=== PATIENT | female | born 1970 | race Caucasian/White ===

== ENCOUNTER → 2024-05-19 15:34 | Outpatient (BNVA) | payer MEDICAID, SELFPAY | PROVIDERS: Family Provider Nurse Practitioner Family; PCP Nurse Practitioner Family; Visit Provider Family Medicine | DX: E11.9 Type 2 diabetes mellitus without complications (principal) | CPT/HCPCS: 83036 ==

== ENCOUNTER → 2024-10-28 15:53 | Outpatient (BNVA) | payer MEDICAID, SELFPAY | PROVIDERS: Family Provider Nurse Practitioner Family; PCP Nurse Practitioner Family; Visit Provider Nurse Practitioner | DX: N39.0 Urinary tract infection, site not specified (principal) | CPT/HCPCS: 81000; 87086 ==

== ENCOUNTER → 2024-11-10 08:56 | Outpatient (BNVA) | payer MEDICAID, SELFPAY | PROVIDERS: Family Provider Nurse Practitioner Family; PCP Family Medicine; Visit Provider Family Medicine | DX: Z12.4 Encounter for screening for malignant neoplasm of cervix (principal) | CPT/HCPCS: 87624 ==

== ENCOUNTER → 2024-12-12 08:38 | Outpatient (BNVA) | payer MEDICAID, SELFPAY | PROVIDERS: PCP Family Medicine; Visit Provider Family Medicine | DX: E11.9 Type 2 diabetes mellitus without complications (principal); E78.01 Familial hypercholesterolemia; E53.8 Deficiency of other specified B group vitamins; E55.9 Vitamin D deficiency, unspecified | CPT/HCPCS: 80053; 80061; 82306; 82607; 83036; 84443 ==

== ENCOUNTER 2025-01-31 13:33 | Outpatient (CLI) | payer OTHER, SELFPAY ==
--- NOTE | 2025-01-31 13:43 | XRR_ITS ---
PROCEDURE INFORMATION: Exam: XR Right Foot Exam date and time: 01/31/2025 1:51 PM Age: 54 years old Clinical indication: Foot; Right; PT states she broke her big toe x 12 years. Pain has came back x few weeks. ; Additional info: R 1st mtp pain and stiffness; Past old FX TECHNIQUE: Imaging protocol: Radiologic exam of the right foot. Views: 3 or more views. COMPARISON: No relevant prior studies available. FINDINGS: Bones/joints: Mild degenerative change 1st metatarsal phalangeal joint. Lateral view demonstrates wmbcgtzy-ut-wabem calcaneal spur or enthesophyte formation about both the posterior and plantar aspect of the calcaneus. No acute fracture or dislocation. Soft tissues: No significant soft tissue abnormality. XR/XR foot RT min 3V* [id number] IMPRESSION: Mild degenerative change 1st metatarsophalangeal joint. Cyiniiyg-oa-jwyod calcaneal spur or enthesophyte formation.
== END 2025-01-31 13:34 | disposition home or self-care (01) ==
PROVIDERS: PCP Family Medicine; Visit Provider Family Medicine
DX: M79.674 Pain in right toe(s) (principal); M19.071 Primary osteoarthritis, right ankle and foot; M77.31 Calcaneal spur, right foot
CPT/HCPCS: 73630

== ENCOUNTER 2025-03-31 14:30 | Outpatient (CLI) | payer OTHER, SELFPAY ==
--- NOTE | 2025-03-31 15:00 | MM_ITS ---
WS: [id number] Bilateral screening 3D tomosynthesis digital mammogram, 03/31/2025 2:37 PM Clinical Data: screening Comparison: None. Findings: No spiculated masses or clustered calcifications are seen. There are no secondary signs of carcinoma. MM/MM scr BI tomosynthesis [id number] Impression: Negative bilateral mammogram with no prior exam for review. Recommend annual screening mammograms. BIRADS: 1 - Negative. FOLLOW UP: 1 Year Follow-up DENSITY: There are scattered areas of fibroglandular density. The CAD schedule checker was used
== END 2025-03-31 14:31 | disposition home or self-care (01) ==
LOC: RAD 14:31
PROVIDERS: PCP Family Medicine; Visit Provider Family Medicine
DX: Z12.31 Encounter for screening mammogram for malignant neoplasm of breast (principal); R92.323 Mammographic fibroglandular density, bilateral breasts
CPT/HCPCS: 77063; 77067

== ENCOUNTER 2025-04-16 11:02 | Emergency (ER) | payer OTHER, SELFPAY ==
--- OUTSIDE RECORDS SUMMARY | 2023-04-15 11:00 | XMS_ITS | Continuity of Care Document ---
Author Organization [facility] Address [id number][place] [address] Phone Care Team Providers Care V Block Saw Operator Name Role Phone Tk Ramirez DMD Unavailable Unavailable Allergies, Adverse Reactions, Alerts Substance Reaction Status Criticality No Known Allergies Active No Inform ation Medications Medication Instructions Dosage Effective Dates (start - stop) Status Comments amoxicillin 500 mg capsule take 2 capsules by oral route for the first dose then 1 capsule every 8 hours until gone. - Active amoxicillin 500 mg capsule take 2 capsules by oral route for the first dose then 1 capsule every 8 hours until gone. - Active penicillin V potassium 500 mg tablet take 1 tablet by oral route every 6 hours for dental infection 500 MG - Active metformin 500 mg tablet take 1 tablet by oral route 2 times every day with morning and evening meals 500 MG - Active montelukast 10 mg tablet take 1 tablet by oral route every day in the evening 10 MG - Active Procedures Procedure Date Treatment Plan Complete Resin-Based Composite Four Or More Surfaces Or I Resin-Based Composite One Surface, Anterior Resin-Based Composite Two Surfaces, Anterior Resin-Based Composite Three Surfaces, Posterior Resin-Based Composite Two Surfaces, Anterior Resin-Based Composite Four Or More Surfaces Or I Extraction, Erupted Tooth Or Exposed Beverly t (Elevati Resin-Based Composite Three Surfaces, Posterior Anterior (Excluding Final Taoism) M Core Buildup, Including Any Pins 2022 Resin-Based Composite One Surface, Posterior Resin-Based Composite One Surface, Posterior Intraoral Periapical First Film Comprehensive Oral Evaluatio n New Or Established Panoramic Film Intraoral Periapical Each Additional Film Intraoral Periapical Each Additional Film Intraoral Periapical Each Additional Film Prophylaxis Adult Bitewings Two Films Intraoral Periapical First Film Limited Oral Evaluation Problem Focused Extraction, Erupted Tooth Or Exposed Beverly t (Elevati Advance Directives Directive Yes / No Effective Date File Name No Information Encounters Encounter Description Practice Location Reason(s) For Visit Diagnoses Date Provider Providers Copied on Encounter [facility], [id number] [place], [place], [id number], [place] tel:[phone] [facility] Encounter for dental exam and cleaning w/o abnormal findings Sep-2 3 James Frey. [address] [place] [address], [address], [place]. tel:[phone] Referring Provider: Tk Ramirez, [address] [place] [address], [address]. tel:[phone] [facility], [id number] [place], [id number], [place] tel:[phone] [facility] Encounter for dental exam and cleaning w/o abnormal findings Sep-0 3 James Frey. [address] [place] [address], [address], [place]. tel:[phone] Referring Provider: Tk Ramirez, [address] [place] [address], [address]. tel:[phone] [facility], [id number]-U[address] [place], [id number], [place] tel:[phone] [facility] Encounter for dental exam and cleaning w/o abnormal findings [address] [place], [address], [place]. tel:[phone] Referring Provider: Tk Ramirez, [address] [place] [address], [address]. tel:[phone] [facility], [id number], [id number], [place] tel:[phone] [facility] No Information 3 James Frey. [address] [place] [address], [address], [place]. tel:[phone] [facility], [id number], [id number], [place] tel:[phone] [facility] No Information 3 James Frey. [address] [place], [address], [place]. tel:[phone] Referring Provider: Tk Ramirez, [address] [place] [address], [address]. tel:[phone] [facility], [id number] [place], [id number], [place] tel:[phone] [facility] No Information 3 James Frey. [address] [place], [address], [place]. tel:[phone] Referring Provider: Tk Ramirez, [address] [place] [address], [address]. tel:[phone] [facility], [id number] 727[place]JO[place], [id number], [place] tel:[phone] [facility] No Information 3 James Frey. [address] [place] [address], [address], [place]. tel:[phone] Referring Provider: Tk Ramirez, [address] [place] [address], [address]. tel:[phone] [facility], [id number] [id number][place], [id number], [place] tel:[phone] [facility] No Information 3 James Frey. [address] [place] [address], [address], [place]. tel:[phone] Referring Provider: Tk Ramirez, [address] [place] [address], [address]. tel:[phone] [facility], [id number] [id number][place], [id number], [place] tel:[phone] [facility] No Information 2 No Information [facility], [id number][place], [id number], [place] tel:[phone] [facility] No Information 2 Nestor Perez. [address] [place], [place], [id number], [place]. tel:[phone] Referring Provider: Jacki Baez, [address] [place], [address] . tel:[phone] Family History Family Member Type Diagnosis Age At Onset No Information Payers Payer name Insurance type Covered green party ID Kingsleyelvira elsi(s) [facility] Medicaid CI [id number] Social History Type Description Quantity Date Captured Comments Alcohol Use Details Unknown Caffeine Use Details Unknown Tobacco Use Status No Information Smoking Status No Information Sex Female Sexual Orientation Heterosexual Gender Identity Female Chief Complaint And Reason For Visit No Information Reason For Referral Reason For Referral No Information History Of Present Illness Encounter Date Complaint History Of Prese nt Illness No Information Functional Status Date Functional Assessmen t No Information Instructions Date Instruction Additional Infor mation No Information Assessments Type Assessment Date No Information Patient Care Teams Name Effective Dates (start - stop) Status Members No Information
[2025-04-16 11:07] VITALS: BP 140/89; PULSE 77; RESP 18; TEMP 36.5; O2SAT 100; BMI 27.6
--- OUTSIDE RECORDS SUMMARY | 2025-04-16 11:07 | XMS_ITS | Encounter Summary ---
Author Organization [facility] Address [address] [place] [address] Care Team Providers Care Hog Confinement System Manager Name Role Phone Non-Staff, Physician Primary Care Provider Unava ilable Encounter Details Date Type Department Care Team (Late st Contact Info) Description 11/29/1999 Outpatient Historical [facility]- [facility] [place] [address] [place] [address] Aaron Ness, [address] 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
--- OUTSIDE RECORDS SUMMARY | 2025-04-16 11:07 | XMS_ITS | Encounter Summary ---
Author Organization [facility] Address [address] [place] [address] Care Team Providers Care Harvest Worker Fruit Name Role Phone Non-Staff, Physician Primary Care Provider Unava ilable Encounter Details Date Type Department Care Team (Late st Contact Info) Description 08/28/2000 Outpatient Historical [facility] Oral and Maxillo Surgery[address] [place] [id number] Social History Tobacco Use Types Packs/Day Years Used Date Smoking Tobacco: Never Assessed Comments Unknown Sex and Gender Information Value Date Recorded Sex Assigned at Not on file Legal Sex Female 2:52 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
--- OUTSIDE RECORDS SUMMARY | 2025-04-16 11:07 | XMS_ITS | Encounter Summary ---
Author Organization [facility] Address [address] [place] [address] Care Team Providers Care Coat Maker Name Role Phone Non-Staff, Physician Primary Care Provider Unava ilable Reason for Referral * Outpatient Services (Routine) - Closed Specialty Diagnoses / Procedures Referred By Albert beltran Referred To Contact Diagnoses Other screening mammogram Procedures MAMMO DIGITAL SCREEN BILAT Kameron Callaway MD NO ADDRESS ON FILE Referral ID Status Reason Start Date Expiration Date Visits Re quested Visits Authorized [id number] Closed 01/20/2011 01/20/2012 1 1 Encounter Details Date Type Department Care Team (Latest Contact Info) Description 01/20/2011 Ancillary Orders [facility] Pre-Registration [place] CALL TO MAKE APPOINTMENT ONLY [address] [place] [phone] Kameron Callaway MD NO ADDRESS ON FILE Other screening mammogram Social History Tobacco Use Types Packs/Day Years Used Date Smoking Tobacco: Never Smokeless Tobacco: Never Alcohol Use Standard Drinks/Week Comments No 0 (1 standard drink = 0.6 oz pur e alcohol) Comments Unknown Sex and Gender Information Value Date Recorded Sex Assigned at Not on file 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 However, I would recommend the patient obtain a risk assessment to determine her lifetime risk because of her family history. See above dictation for details. KG/jaw Narrative 02/24/2011 8:54 PM CDT BILATERAL SCREENING MAMMOGRAM: Bilateral CC and MLO views were obtained on this 40-year-old female who has a family history of breast cancer in two paternal cousins that were diagnosed in their mid 40s and late 50s. This is a baseline examination. There is a moderate degree of parenchymal tissue, and no suspicious findings are convincingly identified on either side. Because of the family history, I would recommend the patient obtain a risk assessment to determine her lifetime risk. If that assessment reveals a 20 to 25% risk of developing breast cancer, she would be a candidate for yearly screening MRIs in addition to the yearly screening mammogram. That risk assessment can be performed at the [facility] by Anjali Eason RN ([phone]). This digital mammogram was also analyzed by the Computer Aided Detection System (CAD), Payfirma ImageChecker, Version 8.3. Procedure Note Brooklyn Watson MD - 02/24/2011 BILATERAL SCREENING MAMMOGRAM: Bilateral CC and MLO views were obtained on this 40-year-old female whohas a family history of breast cancer in two paternal cousins that werediagnosed in their mid 40s and late 50s. This is a baselineexamination. There is a moderate degree of parenchymal tissue, and no suspiciousfindings are convincingly identified on either side. Because of thefamily history, I would recommend the patient obtain a risk assessment todetermine her lifetime risk. If that assessment reveals a 20 to 25% riskof developing breast cancer, she would be a candidate for yearly screeningMRIs in addition to the yearly screening mammogram. That risk assessmentcan be performed at the [facility] by LITO Cali ([phone]). This digital mammogram was also analyzed by the Computer Aided DetectionSystem (CAD), Payfirma ImageAppSurfercker, Version 8.3. IMPRESSION: Baseline screening mammogram reveals no suspicious findings. However, Iwould recommend the patient obtain a risk assessment to determine herlifetime risk because of her family history. See above dictation forduketails. KG/jaw us Kameron Callaway MD MAMMO ORDERABLES [facility] Result documented in this encounter Visit Diagnoses Diagnosis Other screening mammogram Other screening mammogram documented in this encounter Care Teams Coat Maker Relationship Specialty Start Date End Date Non-Staff, Physician NO ADDRESS ON FILE PCP - General 02/18/11 documented as of this encounter
--- OUTSIDE RECORDS SUMMARY | 2025-04-16 11:07 | XMS_ITS | Encounter Summary ---
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) Social History Tobacco Use Types Packs/Day Years Used Date Smoking Tobacco: Never Assessed Comments Unknown Sex and Gender Information Value Date Recorded Sex Assigned at Not on file Legal Sex Female 2:52 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
--- OUTSIDE RECORDS SUMMARY | 2025-04-16 11:07 | XMS_ITS | Encounter Summary ---
Author Organization [facility] Address [address] [place] [address] Care Team Providers Care German Instructor Name Role Phone Non-Staff, Physician Primary Care Provider Unava ilable Encounter Details Date Type Department Care Team (Late st Contact Info) Description 10/15/1999 Outpatient Historical [facility] Rheumatology- [facility] [address] [place] [address] Aaron Ness, [address] [facility] [address] [place] [address] Rheumatism, unspecified and fibrositis (Primary Dx); Other chest pain Social History Tobacco Use Types Packs/Day Years Used Date Smoking Tobacco: Never Assessed Comments Unknown Sex and Gender Information Value Date Recorded Sex Assigned at Not on file Legal Sex Female 2:52 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
--- OUTSIDE RECORDS SUMMARY | 2025-04-16 11:07 | XMS_ITS | Encounter Summary ---
Author Organization [facility] Address [address] [place] [address] Care Team Providers Care Process Engineering Intern Name Role Phone Non-Staff, Physician Primary Care Provider Unava ilable Encounter Details Date Type Department Care Team (Latest Contact Info) Description 11/09/2002 Outpatient Historical [facility] [address] [place] [address] AMBULANCE, [facility] FX PHALANX, HAND NOS-CLOSE (Primary Dx) Social History Tobacco Use Types Packs/Day Years Used Date Smoking Tobacco: Never Assessed Comments Unknown Sex and Gender Information Value Date Recorded Sex Assigned at Not on file Legal Sex Female 2:52 AM SOCIAL SERVICE DIRECTOR Gender Identity Not on file Sexual Orientation Not on file documented as of this encounter Plan of Treatment Not on file documented as of this encounter Visit Diagnoses Diagnosis Closed fracture of unspecified phalanx or phalanges of hand- Primary documented in this encounter Care Teams Process Engineering Intern Relationship Specialty Start Date End Date Non-Staff, Physician NO ADDRESS ON FILE PCP - General 02/18/11 documented as of this encounter
--- OUTSIDE RECORDS SUMMARY | 2025-04-16 11:07 | XMS_ITS | Clinical Summary ---
Author Organization [facility] Address [address] [place] [address] Care Team Providers Care Trashman Name Role Phone Non-Staff, Physician Primary Care Provider Unava ilable Allergies No known active allergies Medications spironolactone (ALDACTONE) 100 mg Oral tabletIndication s:PCOS (polycystic ovarian syndrome),Oligom enorrhea,Hyperan drogenism Take 1 Tab by mouth daily. 14 Tab 0 02/20/2011 Active Active Problems Problem Noted Date Diagnosed Date S/P endometrial ablation 01/16/2011 Oligomenorrhea 01/16/2011 Irregular menstrual cycle 01/16/2011 PCOS (polycystic ovarian syndrome) 01/16/2011 Family History Medical History Relation Name Comments Breast Cancer Paternal Cousin 2 cousins m id 40s and late 50s Relation Name Status Comments Paternal Cousin Social History Tobacco Use Types Packs/Day Years Used Date Smoking Tobacco: Never Smokeless Tobacco: Never Alcohol Use Standard Drinks/Week Comments No 0 (1 standard drink = 0.6 oz pur e alcohol) Comments Unknown Sex and Gender Information Value Date Recorded Sex Assigned at Not on file 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 Gender Identity Not on file Sexual Orientation Not on file Last Filed Vital Signs Vital Sign Reading Time Taken Comments Blood Pressure 122/76 02/20/2011 10:43 AM CDT Pulse - - Temperature 37.1 C (98.8 F) 02/20/2011 10:43 AM CDT Respiratory Rate - - Oxygen Saturation - - Inhaled Oxygen Concentration - - Weight 90.7 kg (200 lb) 02/20/2011 10:43 AM CDT Height 160 cm (5' 3 ) 02/20/2011 10:43 AM CDT Body Mass Index 35.43 02/20/2011 10:43 AM CDT Plan of Treatment Health Maintenance Due Date Last Done Comments DTAP/TDAP/TD VACCINES (1 - Tdap) 1989 HEPATITIS B VACCINES (1 of 3 - 19+ 3-dose series) 08/28 BREAST CANCER SCREENING 02/21/2012 02/20/2011 PAP SMEAR 01/16/2014 01/16/2011 COLORECTAL SCREENING 2015 Colorectal Cancer Screening 2015 FIT-DNA Q 3 years 2015 FIT/FOBT Q 1 year 2015 Flex Sig/CT Colonography Q 5 years 2015 CERVICAL CANCER SCREENING 01/17/2016 HPV/Cotest (21-29) 01/17/2016 01/16/2011 HPV/Cotest (30-65) 01/17/2016 01/16/2011 ZOSTER VACCINE (1 of 2) 2020 INFLUENZA VACCINE (#1) 2025 Procedures Procedure Name Priority Date/Time Associated Diagnosis Comments MAMMO SCREEN BILAT W OR WO CAD Routine 02/20/2011 9:17 AM CDT Other screening mammogram CERV/VAG CYTOPATH, THIN PREP W/RFLX HPV Routine 01/16/2011 7:05 AM CDT from Last 3 Months or Most Recently Relevant to Health Maintenance Results * MAMMO DIGITAL SCREEN BILAT (02/20/2011 [...] [facility] by Anjali Eason RN ([phone]). This digital mammogram was also analyzed by the Computer Aided Detection System (CAD), R2 ImageChecker, Version 8.3. Procedure Note Brooklyn Watson [...] and [facility] by LITO Cali ([phone]). This digital mammogram was also analyzed by the Computer Aided DetectionSystem (CAD), R2 ImageChecker, Version 8.3. IMPRESSION: Baseline screening mammogram reveals no suspicious findings. However, Iwould recommend the patient obtain a risk assessment to determine herlifetime risk because of her family history. See above dictation fordetails. KG/jaw us Kameron Callaway MD MAMMO ORDERABLES [facility] Result * CERV/VAG CYTOPATH, THIN PREP W/RFLX HPV (01/16/2011 7:05 AM CDT) TH THIN PREP CYTOLOGY REPORT REFLEX HPV [facility] Path[facility] Dept [facility] [address] Patient: RODRIGO JORDAN Accn No: [id number] , [id number] Collected: 01/16/2011 7:05:00 AM All cases except those with a DP prefix are performed by pathologists from [facility] at [facility]. Case type DP is performed by Dr. Harjeet Trammell, [facility], [facility] [address], [address], [place] [address] (CLIA #[id number]) (Ph. [phone]). THIN PREP PAP - REFLEX HPV History Specimen Type: Endocervical LMP: 11-15-10 Previous Pap History: WNL Specimen Adequacy Satisfactory for interpretation. Shows sufficient numbers of endocervical or metaplastic cells. Diagnosis NEGATIVE FOR INTRAEPITHELIAL LESION OR MALIGNANCY. (Prevously noted as Within Normal Limits). Lens Molding Equipment Operator/ JAMES EDR Pathologist: 01/23/11 Completed by: THEODORE CALIXTO BSCT (ASCP) (Electronically signed by) 01/23/11 Comment Routine follow-up is suggested. Important Information About Pap Smears The Pap smear is associated with a low but well-documented and probably irreducible false negative rate of up to 10%. Additionally, the false positive rate for a diagnosis of invasive carcinoma or HSIL has been estimated to be approximately 1-10%. Therefore, any visible lesion on the cervix should be biopsied regardless of Pap smear findings. HPV Testing off the Thin Prep vial can be done as a means of further evaluating a Thin Prep Report. For information about ordering the HPV test, phone Virology at . Treatment or follow-up recommendations (if any) that are contained within this report are based upon general recommendations as contained in 2001 Consensus Guidelines For Cervical Cytological Abnormalities PRAFUL: November 17, 2001, and are provided as a general guideline rather than as a specific recommendation. Final decisions about the most appropriate treatment and follow-up should be made on an individualized basis by the treating physician in consultation with his/her patient. [facility] 01/16/2011 7:05 AM CDT us Kameron Callaway MD PATHOLOGY/CYTOLOGY OR DERABLES Final Result INTERFACE SYSTEM Refer to clinic/hospital department [facility] CLIA# [id number] [address] [place] [address] from Last 3 Months or Most Recently Relevant to Health Maintenance [place] [address] [place] [address] Care Teams Trashman Relationship Specialty Start Date End Date Non-Staff, Physician NO ADDRESS ON FILE PCP - General 02/18/11
--- OUTSIDE RECORDS SUMMARY | 2025-04-16 11:07 | XMS_ITS | Encounter Summary ---
Author Organization [facility] Address [address] [place] [address] Care Team Providers Care Agriculture Manager Name Role Phone Non-Staff, Physician Primary Care Provider Unava ilable Encounter Details Date Type Department Care Team (Late st Contact Info) Description 04/03/2000 Outpatient Historical [facility]- [facility] [address] [place] [address] Aaron Ness, [address] [facility] [address] [place] [address] Rheumatism, unspecified and fibrositis (Primary Dx) Social History Tobacco Use Types Packs/Day Years Used Date Smoking Tobacco: Never Assessed Comments Unknown Sex and Gender Information Value Date Recorded Sex Assigned at Not on file 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
--- OUTSIDE RECORDS SUMMARY | 2025-04-16 11:07 | XMS_ITS | Encounter Summary ---
Author Organization [facility] Address [address] [place] [address] Care Team Providers Care Financial Aid Director Name Role Phone Non-Staff, Physician Primary Care Provider Unava ilable Encounter Details Date Type Department Care Team (Latest Contact Info) Description 03/09/2012 Ancillary Orders [facility] Pre-Registration [place] CALL TO MAKE APPOINTMENT ONLY [address] [place] [id number] Kameron Callaway MD NO ADDRESS ON FILE Other screening mammogram Social History Tobacco Use Types Packs/Day Years Used Date Smoking Tobacco: Never Smokeless Tobacco: Never Alcohol Use Standard Drinks/Week Comments No 0 (1 standard drink = 0.6 oz pur e alcohol) Comments Unknown Sex and Gender Information Value Date Recorded Sex Assigned at Not on file 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
--- OUTSIDE RECORDS SUMMARY | 2025-04-16 11:07 | XMS_ITS | Encounter Summary ---
Author Organization [facility] Address [address] [place] [address] Care Team Providers Care Instrumental Musician Name Role Phone Unavailable Primary Care Provider Unavailabl e Reason for Visit * Reason Comments Office Visit: Converted Data Conversion Encounter Details Date Type Department Care Team (Late st Contact Info) Description 02/02/20[facility] [address] [place] [address] Default, [facility] Provider [place] Social History Tobacco Use Types Packs/Day Years Used Date Smoking Tobacco: Never Assessed Social Connections Answer Date Recorded Social Connections and Isolation 0 11/18/2023 Financial Resource Strain Answer Date R ecorded Financial Resource Strain 0 2023 Stress Answer Date Recorded Stress 0 11/18/2023 Physical Activity Answer Date Recorded Physical Activity 0 11/18/2023 Food Insecurity Answer Date Recorded Food 0 11/18/2023 Transportation Needs Answer Date Record ed Transportation 0 11/18/2023 Housing Stability Answer Date Recorded Housing 0 11/18/2023 Safety and Environment Answer Date Cezar rded Safety 0 11/18/2023 Utilities Answer Date Recorded Utilities 0 11/18/2023 Employment Answer Date Recorded Employment 0 11/18/2023 Comments Unknown Sex and Gender Information Value Date Recorded Sex Assigned at Female 07/12/2024 1:08 PM PST Legal Sex Female 6:33 PM PDT Gender Identity Female 01/15/2024 3:43 PM PDT Sexual Orientation Straight 01/15/2024 3: 43 PM PDT documented as of this encounter Plan of Treatment Scheduled Orders Name Type Priority Associated Diagnoses Orde r Schedule 14 14 CROWN - PORCELAIN/CERAMI C Dental Procedures Routine 1 Occurrences starting 01/12/2024 documented as of this encounter Visit Diagnoses Not on filedocumented in this encounter
--- OUTSIDE RECORDS SUMMARY | 2025-04-16 11:07 | XMS_ITS | Encounter Summary ---
Author Organization [facility] Address [address] [place] [address] Care Team Providers Care Surveyor Instrument Assistant Name Role Phone Non-Staff, Physician Primary Care Provider Unava ilable Encounter Details Date Type Department Care Team (Latest Contact Info) Description 06/05/1998 Outpatient Historical [facility] [address] [address] Open wound of foot except toe(s) alone, without mention of complication (Primary Dx) Social History Tobacco Use Types Packs/Day Years Used Date Smoking Tobacco: Never Assessed Comments Unknown Sex and Gender Information Value Date Recorded Sex Assigned at Not on file 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
--- OUTSIDE RECORDS SUMMARY | 2025-04-16 11:07 | XMS_ITS | Clinical Summary ---
Author Organization [facility] Address [address] [place] [address] Care Team Providers Care Therapeutic Radiologist Name Role Phone Unavailable Primary Care Provider Unavailabl e Source Comments PLEASE NOTE, if this patient is a minor, it may be UNLAWFUL to discuss sensitive information that is contained in these records (such as FAMILY PLANNING, MENTAL HEALTH or SUBSTANCE ABUSE) with the minor patient's parent or other person without the patient's specific authorization.[facility] Allergies No known active allergies Medications penicillin V potassium (VEETID) 500 mg tablet take 1 tablet by oral route every 6 hours for dental infection 2 Active atorvastatin (LIPITOR) 10 mg tablet Take 20 mg by mouth nightly at bedtime 4 Active metFORMIN (GLUCOPHAGE) 500 mg tablet Take 500 mg by mouth nightly at bedtime 4 Active carBAMazepine (TEGRETOL) 200 mg tablet Take 200 mg by mouth 2 (two) times daily Active TRULICITY 3 mg/0.5 mL pen injector Inject 3 mg into the skin once a week 4 Active cyanocobalamin (VITAMIN B-12) 1,000 mcg tablet Take 1,000 mcg by mouth once daily 4 Active cholecalciferol (VITAMIN D3) 50 mcg (2,000 unit) capsule Take 50 mcg by mouth once daily 3 Active diazePAM (VALIUM) 5 mg tablet BRING BOTH TABLETS TO APPOINTMENT. DO NOT TAKE UNTIL INSTRUCTED TO DO SO BY STAFF 5 Active fluticasone (FLONASE) 50 mcg/actuation nasal spray 50 mcg 4 Active liraglutide (VICTOZA 2-NATHAN) 0.6 mg/0.1 mL (18 mg/3 mL) See Instructions, 0.6 mg SubQ once daily for one week, then increase to 1.2 mg SubQ once daily., # 15 mL, Refill(s) 3, Pharmacy: [facility], [id number], Instructions Replace Required Details, 0.6 mg SubQ once daily f... 4 Active montelukast (SINGULAIR) 10 mg tablet Take 1 Tablet by mouth every evening Active mupirocin (BACTROBAN) 2 % ointment APPLY OINTMENT TOPICALLY TO AFFECTED AREA THREE TIMES DAILY FOR 14 DAYS 4 Active Active Problems Problem Noted Date Diagnosed Date Controlled type 2 diabetes m ellitus with hyperglycemia, without long-term current use of insulin (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 Spider bite wound 09/02/2024 Transaminitis 09/02/2024 Trigeminal neuralgia 09/02/2024 Vitamin B12 deficiency 09/02/2024 Vitamin D deficiency 09/02/2024 Irregular menstrual cycle 01/16/2011 Oligomenorrhea 01/16/2011 PCOS (polycystic ovarian syndrome) 01/16/2011 S/P endometrial ablation 01/16/2011 Social History Tobacco Use Types Packs/Day Years Used Date Smoking Tobacco: Never Smokeless Tobacco: Never Tobacco Cessation:Counseling Given: Not Answered Alcohol Use Standard Drinks/Week Comments Not Currently 0 (1 standard drink = 0.6 oz pur e alcohol) Social Connections Answer Date Recorded Connectedness 0 04/11/2024 Financial Resource Strain Answer Date R ecorded Financial Resource Strain 0 2023 Stress Answer Date Recorded Stress 0 11/18/2023 Physical Activity Answer Date Recorded Physical Activity 0 11/18/2023 Food Insecurity Answer Date Recorded Food 0 04/21/2024 Transportation Needs Answer Date Record ed Transportation 0 11/18/2023 Housing Stability Answer Date Recorded Housing 0 11/18/2023 Safety and Environment Answer Date Cezar rded Safety 0 11/18/2023 Utilities Answer Date Recorded Utilities 0 11/18/2023 Employment Answer Date Recorded Stress 0 04/11/2024 Comments Unknown Sex and Gender Information Value Date Recorded Sex Assigned at Female 07/12/2024 1:08 PM PST Legal Sex Female 6:33 PM PDT Gender Identity Female 01/15/2024 3:43 PM PDT Sexual Orientation Straight 01/15/2024 3: 43 PM PDT Last Filed Vital Signs Vital Sign Reading Time Taken Comments Blood Pressure 140/92 09/02/2024 4:12 PM INGOT STRIPPER Pulse 87 09/02/2024 4:12 PM INGOT STRIPPER Temperature - - Respiratory Rate - - Oxygen Saturation - - Inhaled Oxygen Concentration - - Weight - - Height - - Body Mass Index - - Plan of Treatment Health Maintenance Due Date Last Done Comments Anxiety Screening 1970 Dental FMX/Pano 1970 Diabetes Foot Exam 1970 HPV Screening 1970 Hemoglobin A1c 1970 Hepatitis C Screening 1970 Lipid Screening 1970 Pap + HPV 1970 Serum Creatinine 1970 Urine Albumin Creatinine Rat io Screening 1970 Retinopathy Screening 1983 HIV Screening 1985 Imm-Hepatitis B (1 of 3 - 19 + 3-dose series) 1989 Cervical Cancer Screening 1991 Pap Smear 1991 Breast Cancer Screening (Mammogram) 02/20/2013 02/20/2011 CT Colonography 2015 Colonoscopy 2015 Colorectal Cancer Screening 2015 FIT/gFOBT 2015 Fecal DNA 2015 Flexible Sigmoidoscopy 2015 Imm-Zoster, Recombinant (1 of 2) 2020 Imm-Pneumococcal 50+ (2 of 2 - PCV) 07/04/2021 07/04/2020 Alcohol and Drug Screen 07/27/2024 Depression Annual Screen 07/27/2024 Dental Prophy 03/04/2025 09/02/2024 [id number]-BPNWV-99 (3 - season) 03/27/20252 021, 10/12/2020 Imm-Influenza (#1) 2025 05/20/2023, 1 09/03/2021, 06/06/2021, Additional history exists Dental BW 06/19/2025 06/17/2024 Dental Examination 06/19/2025 06/17/2024 Hypertension Screening (#1) 09/02/2025 Tobacco Screening 09/02/2025 09/02/2024 Dental Perio Charting 09/04/2025 09/02/2024 Imm-DTaP/Tdap/Td (2 - Td or Tdap) 12/26/2029 020 Cervical Ablation/Cold-Knife Conization Discontinued Cervical Cryotherapy Discontinued Colposcopy Discontinued Endometrial Biopsy Discontinued Excision/Leep Discontinued HPV Genotyping Discontinued Vaginal Pap Discontinued Vulvoscopy Discontinued Procedures Procedure Name Priority Date/Time Associated Diagnosis Comments PROPHYLAXIS - ADULT Routine 09/02/2024 4 :00 PM INGOT STRIPPER Dental calculus BITEWINGS - THREE RADIOGRAPHIC IMAGES Routine 06/17/2024 3:00 PM INGOT STRIPPER Encounter for dental examination PERIODIC ORAL EVALUATION ESTABLISHED PATIENT Routine 06/17/2024 3:00 PM INGOT STRIPPER Caries Encounter for dental examination from Last 3 Months or Most Recently Relevant to Health Maintenance Insurance [facility] Member Subscriber Plan / Payer (Ef fective 2023-Present) Name:Triny Pearce Relation to Subscriber:Self Name:Triny Pearce Payer ID:[id number] (NAIC) Group ID:[id number] Type:Indemnity Address: [place] [id number]
--- OUTSIDE RECORDS SUMMARY | 2025-04-16 11:07 | XMS_ITS | Clinical Summary ---
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 Gender Identity Not on file Sexual Orientation Not on file Plan of Treatment Health Maintenance Due Date Last Done Comments DTAP/TDAP/TD VACCINES (1 - Tdap) 1989 HEPATITIS B VACCINES (1 of 3 - 19+ 3-dose series) 08/28 HPV/Cotest (21-29) 1991 CERVICAL CANCER SCREENING 2000 HPV/Cotest (30-65) 2000 PAP SMEAR 2000 BREAST CANCER SCREENING 02/21/2012 02/20/2011 COLORECTAL SCREENING 2015 Colorectal Cancer Screening 2015 FIT-DNA Q 3 years 2015 FIT/FOBT Q 1 year 2015 Flex Sig/CT Colonography Q 5 years 2015 ZOSTER VACCINE (1 of 2) 2020 INFLUENZA VACCINE (#1) 2025 Procedures Procedure Name Priority Date/Time Associated Diagnosis Comments MAMMO SCREEN BILAT W OR WO CAD Routine 02/20/2011 9:17 AM CDT Other screening mammogram from Last 3 Months or Most Recently Relevant to Health Maintenance Results * MAMMO SCREEN BILAT W OR WO CAD (02/20/2011 9:17 AM CDT) Anatomical Region Laterality Modality Breast Bilateral Other Impressions 02/23/2011 11:45 AM CDT : Baseline screening mammogram reveals no suspicious findings. However, I would recommend the patient obtain a risk assessment to determine her lifetime risk because of her family history. See above dictation for details. KG/jaw Narrative 02/23/2011 11:45 AM CDT BILATERAL SCREENING MAMMOGRAM: Bilateral CC and [...] [facility] by Anjali Eason RN ([phone]). This digital mammogram was also analyzed by the Computer Aided Detection System (CAD), Sevcon ImageChecker, Version 8.3. Procedure Note Brooklyn Watson MD - 09/25/2022 BILATERAL SCREENING MAMMOGRAM: Bilateral CC and MLO [...] [facility] by Anjali Eason RN ([phone]). This digital mammogram was also analyzed by the Computer Aided Detection System (CAD), Sevcon ImageSparkcentralcker, Version 8.3. IMPRESSION : Baseline screening mammogram reveals no suspicious findings. However, I would recommend the patient obtain a risk assessment to determine her lifetime risk because of her family history. See above dictation for details. KG/jaw us Kameron Callaway MD MAMMO ORDERABLES [facility] Result from Last 3 Months or Most Recently Relevant to Health Maintenance Care Teams Teletypesetter Monitor Relationship Specialty Start Date End Date Non-Staff, Physician NO ADDRESS ON FILE PCP - General 02/18/11
--- NOTE | 2025-04-16 11:11 | CTR_ITS ---
PROCEDURE INFORMATION: Exam: CT Abdomen And Pelvis With Contrast Exam date and time: 04/16/2025 11:48 AM Age: 54 years old Clinical indication: Abdominal pain; Flank; Left; Additional info: Flank pain TECHNIQUE: Imaging protocol: Computed tomography of the abdomen and pelvis with contrast. Radiation optimization: All CT scans at this facility use at least one of these dose optimization techniques: automated exposure control; mA and/or kV adjustment per patient size (includes targeted exams where dose is matched to clinical indication); or iterative reconstruction. Contrast material: OMNI 350; Contrast volume: 100 ml; Contrast route: INTRAVENOUS (IV); COMPARISON: No relevant prior studies available. RADIATION DOSE METRICS: Total DLP (mGy-cm): 599.4 FINDINGS: Liver: Normal. No mass. Gallbladder and biliary ducts: Normal. No calcified stones. No ductal dilation. Pancreas: Normal. No ductal dilation. Spleen: Few calcified splenic granulomas are noted. Adrenal glands: Normal. No mass. Kidneys and ureters: Bilateral nephrolithiasis with largest calculus on the right measuring 5 mm. No ureteral calculi . No hydronephrosis or hydroureter. 14 mm nonspecific cystic structure in the right posterolateral perirenal space. Stomach and bowel: Bowel caliber is normal. No paracolonic inflammatory changes. Appendix: Normal appendix. Intraperitoneal space: Unremarkable. No free air. No significant fluid collection. Vasculature: Unremarkable. No abdominal aortic aneurysm. Lymph nodes: Unremarkable. No enlarged lymph nodes. Urinary bladder: Unremarkable as visualized. Reproductive: Uterus is unremarkable. No suspicious adnexal lesion seen. Bones/joints: Unremarkable. No acute fracture. Soft tissues: Unremarkable. CT/CT abdomen pelvis w con* [id number] IMPRESSION: 1. Bilateral nephrolithiasis with largest calculus on the right measuring 5 mm. No obstructive uropathy. 2. 14 mm nonspecific cystic structure in the right posterolateral perirenal space, of doubtful clinical significance. Finding could represent a congenital cyst. To ensure stability, abdominal CT follow-up in 6 months is recommended. 3. No other acute disease identified in the abdomen or pelvis. COMMENTS: Consistent with the [place] [employer]'s Incidental Findings Committee white paper (J Am Bill Radiol 2018): Any incidental renal lesion less than 1 cm or classified as too small to characterize, or any incidental cystic renal lesion characterized as simple-appearing, is likely benign. No follow-up imaging is recommended for these lesions per consensus recommendations based on imaging criteria.
--- NOTE | 2025-04-16 11:16 | W.ED.FEMALGU ---
HPI - Female Genitourinary General: Chief complaint: Urogenital-Female Stated complaint: lower back pain, abd pain Time Seen by Provider: 04/16/25 11:03 Source: patient Mode of arrival: ambulatory Limitations: no limitations History of Present Illness: 54-year-old female states she had had some right sided flank pain going on over the last couple days. States that the worst was a 6 out of 10 she states that since being her pain is resolved she is currently pain-free. She denies any vomiting diarrhea denies any severe dysuria denies any gross hematuria. Associated symptoms: Reports abdominal pain and nausea Related Data Home Medications ?Medication ?Instructions ?Recorded ?Confirmed carbamazepine 200 mg 200 mg PO QDAY 11/10/24 04/16/25 capsule,extended release [id number] atorvastatin 10 mg tablet 10 mg PO QPM 04/16/25 04/16/25 cholecalciferol (vitamin D3) 125 125 mcg PO QPM 04/16/25 04/16/25 mcg (5,000 unit) tablet (Vitamin D3) cyanocobalamin (vitamin B-12) 1,000 mcg PO QPM 04/16/25 04/16/25 1,000 mcg tablet (Vitamin B-12) metformin 500 mg tablet 1,000 mg PO QPM 04/16/25 04/16/25 multivitamin 1 tab PO QPM 04/16/25 04/16/25 Previous Rx's ?Medication ?Instructions ?Recorded ciclopirox 0.77 % topical 1 applic topical BID 4 weeks #30 mL 03/28/25 suspension Allergies Allergy/AdvReac Type Severity Reaction Status Date / Time No Known Allergies Allergy Verified 03/21/25 10:06 Review of Systems Const: Denies: fever(s) or chills ENMT: Denies: throat pain or dental pain GI: Reports: abdominal pain, nausea and vomiting : Denies: dysuria Musc: Denies: neck pain or back pain PFSH ED PFSH: Medical History DJD (degenerative joint disease), 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 [facility] Polycystic ovarian disease Vitamin B12 deficiency Vitamin D deficiency Hx of Benedict's palsy right Familial hypercholesteremia Controlled type 2 diabetes mellitus without complication, without long-term current use of insulin Trigeminal neuralgia Surgical History Hx of cervical spine surgery November 2024--[facility] History of endometrial ablation Hx of colonoscopy 12.28.18; repeat 10 yrs H/O lithotripsy Family History Father Heart disease Mother Diabetes mellitus, type 2 Stroke Hypertension Social History Smoking and tobacco/nicotine status: never used tobacco/nicotine Alcohol intake: never Substance/Drug Use: never Household members: spouse Marital status: Single Number of children: 1 Highest education level completed: Associate Degree: Occupational, Technical, Vocational Program Current occupational status: employed Current occupation: [employer] Physical Exam Const: COMMON NORMALS: no acute distress, patient oriented x3 and healthy appearing HENMT: COMMON NORMALS: normocephalic and atraumatic HEAD & SCALP: normocephalic and atraumatic Eye: COMMON NORMALS: conjunctivae normal CONJUNCTIVA: Yes conjunctivae normal Neck/C-Spine: COMMON NORMALS: full ROM and supple Chest: COMMONS NORMALS: normal inspection of the chest Resp: COMMON NORMALS: normal respiratory effort Cardio: COMMON NORMALS: regular rate, regular rhythm and No murmurs present (Cardio) RATE: regular rate RHYTHM: regular rhythm GI: COMMON NORMALS: Normal to inspection, nondistended, normoactive bowel sounds present, Soft to palpation, non-tender and no masses PALPATION: Yes Soft to palpation Extremity: COMMON NORMALS: normal to inspection and full ROM Neuro: COMMON NORMALS: patient oriented x3, moves all extremities and no focal motor deficits Psych: COMMON NORMALS: mental status grossly normal, Normal thought process present and cooperative THOUGHT PROCESS: Normal thought process present Skin: COMMON NORMALS: no rashes or lesions noted and no wounds GENERAL SKIN EXAM: no rashes or lesions noted Course Vital Signs: Vital signs: Vital Signs Temperature 97.7 F 04/16/25 11:07 Pulse Rate 77 04/16/25 11:07 Respiratory Rate 18 04/16/25 11:07 Blood Pressure 120/76 04/16/25 11:41 Pulse Oximetry 100 04/16/25 11:41 Oxygen Delivery Me thod Room Air 04/16/25 11:07 MDM - Female Medical Decision Making Patient presents here with right flank pain that is now resolved patient likely passed a kidney stone she did have some hematuria CT is negative no signs of aortic aneurysm she is still pain-free at this time did go over her lab and CT results she is stable for discharge follow-up with PCP return if worsening. Medical Records I reviewed the patient's medical records. Lab Data I reviewed the patient's lab results. 04/16/25 11:15 04/16/25 11:15 Radiology Impressions Abdomen/Pelvis CT 04/16/25 11:11 IMPRESSION: 1. Bilateral nephrolithiasis with largest calculus on the right measuring 5 mm. No obstructive uropathy. 2. 14 mm nonspecific cystic structure in the right posterolateral perirenal space, of doubtful clinical significance. Finding could represent a congenital cyst. To ensure stability, abdominal CT follow-up in 6 months is recommended. 3. No other acute disease identified in the abdomen or pelvis. COMMENTS: Consistent with the [employer]'s Incidental Findings Committee white paper (J Am Bill Radiol 2018): Any incidental renal lesion less than 1 cm or classified as too small to characterize, or any incidental cystic renal lesion characterized as simple-appearing, is likely benign. No follow-up imaging is recommended for these lesions per consensus recommendations based on imaging criteria. Laboratory Results WBC 7.39 10^3/uL (3.29-11.43) 04/16/25 11:15 RBC 5.18 10^6/uL (3.85-5.65) 04/16/25 11:15 Hgb 15.30 g/dL (11.27-16.99) 04/16/25 11:15 Hct 48.7 % (36-47) H 04/16/25 11:15 MCV 94.0 fl (85-98) 04/16/25 11:15 MCH 29.5 pg (27-33) 04/16/25 11:15 MCHC 31.4 g/dL (30-55) 04/16/25 11:15 RDW 12.5 % (12.1-15.1) 04/16/25 11:15 Plt Count 170 10^3/cmm (157-399) 04/16/25 11:15 MPV 11.4 fL (7.4-10.4) H 04/16/25 11:15 Neut % (Auto) 69.6 % 04/16/25 11:15 Lymph % (Auto) 23.8 % 04/16/25 11:15 [place] % (Auto) 4.1 % 04/16/25 11:15 Eos % (Auto) 1.8 % 04/16/25 11:15 Baso % (Auto) 0.4 % 04/16/25 11:15 Neut # (Auto) 5.15 10^3/uL (1.8-7.7) 04/16/25 11:15 Lymph # (Auto) 1.8 10^3/uL (0.8-4.8) 04/16/25 11:15 [place] # (Auto) 0.3 10^3/uL (0.2-0.9) 04/16/25 11:15 Eos # (Auto) 0.1 10^3/uL (0.0-0.8) 04/16/25 11:15 Baso # (Auto) 0.0 10^3/uL (0.0-0.1) 04/16/25 11:15 Nucleated RBC % (auto) 0 % 04/16/25 11:15 Nucleated RBCs # 0.0 /100WBC 04/16/25 11:15 Sodium 141 mmol/L (136-145) 04/16/25 11:15 Potassium 4.3 mmol/L (3.5-5.1) 04/16/25 11:15 Chloride 104 mmol/L (98-107) 04/16/25 11:15 Carbon Dioxide 22 mmol/L (22-29) 04/16/25 11:15 Anion Gap 19.3 (5-19) H 04/16/25 11:15 BUN 17 mg/dL (6-20) 04/16/25 11:15 Creatinine 0.6 mg/dL (0.5-0.9) 04/16/25 11:15 GFR Calculation 104.2 mL/min (90-130) 04/16/25 11:15 Glucose 134 mg/dL (65-115) H 04/16/25 11:15 Calculated Osmolality 296 mOsm/kg (285-295) H 04/16/25 11:15 Calcium 9.5 mg/dL (8.5-10.5) 04/16/25 11:15 Total Bilirubin 0.4 mg/dL (0.15-1.2) 04/16/25 11:15 AST 33 U/L (0-32) H 04/16/25 11:15 ALT 53 U/L (0-33) H 04/16/25 11:15 Alkaline Phosphatase 219 U/L (35-105) H 04/16/25 11:15 Total Protein 7.3 g/dL (6.6-8.7) 04/16/25 11:15 Albumin 4.5 g/dL (3.5-5.2) 04/16/25 11:15 Globulin 2.8 g/dL (1.3-4.6) 04/16/25 11:15 Lipase 33 U/L (13-60) 04/16/25 11:15 Urine Color Yellow (Yellow) 04/16/25 11:34 Urine Appearance Clear (CLEAR) 04/16/25 11:34 Urine pH 5.5 (5-7) 04/16/25 11:34 Ur Specific [place] 1.016 (1.005-1.030) 04/16/25 11:34 Urine Protein Negative (Negative) 04/16/25 11:34 Urine Glucose (UA) Negative (Normal) 04/16/25 11:34 Urine Ketones Negative (Negative) 04/16/25 11:34 Urine Blood 2+ (Negative) A 04/16/25 11:34 Urine Nitrate Negative (Negative) 04/16/25 11:34 Urine Bilirubin Negative (Negative) 04/16/25 11:34 Urine Urobilinogen 0.2 mg/dL (Negative) 04/16/25 11:34 Ur Leukocyte Esterase Negative (Negative) 04/16/25 11:34 Urine RBC 3-5 /hpf (0-2) 04/16/25 11:34 Urine WBC 0-5 /hpf (0-5) 04/16/25 11:34 Ur Squamous Epith Cells 6-10 /hpf (0-5) 04/16/25 11:34 Amorphous Sediment Not Reportable 04/16/25 11:34 Urine Bacteria None seen /hpf (NONE) 04/16/25 11:34 Hyaline Casts 6.61 /lpf 04/16/25 11:34 All radiology interpretation(s) finalized by discharge Discharge Plan Discharge Patient Disposition: Home Clinical Impression: Acute right flank pain Condition: Stable Prescriptions: No Action carbamazepine 200 mg capsule, ER multiphase 12 hr 200 mg PO QDAY ciclopirox 0.77 % suspension 1 applic topical BID 28 Days Qty: 30 0RF multivitamin Tablet 1 tab PO QPM cyanocobalamin (vitamin B-12) [Vitamin B-12] 1,000 mcg Tablet 1,000 mcg PO QPM cholecalciferol (vitamin D3) [Vitamin D3] 125 mcg (5,000 unit) Tablet 125 mcg PO QPM metformin 500 mg tablet 1,000 mg PO QPM atorvastatin 10 mg tablet 10 mg PO QPM Discharge Orders: Discharge ED (Routine); Ordered 04/16/25 Ordered By: Alysia Nobles Referrals: Opal Mathias MD [Primary Care Provider, Family Practice] - 4-7 days Discharge Diet: Advance as tolerated Discharge Activity: Resume usual activity Patient Instructions: Flank Pain (ED) Print Language: Jamaican Coding Level of Care Code ED [place] for Tate Lloyd
[2025-04-16 11:31] LABS: Hematocrit 48.7 % (36-47); Hemoglobin 15.30 g/dL (11.27-16.99); Mean Corpuscular HGB Conc 31.4 g/dL (30-55); Mean Corpuscular Hemoglobin 29.5 pg (27-33); Mean Corpuscular Volume 94.0 fl (85-98); Nucleated Red Blood Cells % 0 %; Platelet Count 170 10^3/cmm (157-399); Red Blood Count 5.18 10^6/uL (3.85-5.65); White Blood Count 7.39 10^3/uL (3.29-11.43)
[2025-04-16 11:41] VITALS: BP 120/76; O2SAT 100
[2025-04-16] MEDS: iohexol 350 mg/mL 500 mL Btl (per mL) IV (11:52)
[2025-04-16 11:53] LABS: Alanine Aminotransferase 53 U/L (0-33); Albumin Level 4.5 g/dL (3.5-5.2); Alkaline Phosphatase 219 U/L (35-105); Anion Gap 19.3 (5-19); Aspartate Amino Transferase 33 U/L (0-32); Blood Urea Nitrogen 17 mg/dL (6-20); Calcium 9.5 mg/dL (8.5-10.5); Carbon Dioxide 22 mmol/L (22-29); Chloride 104 mmol/L (98-107); Creatinine Clr Calc Pharmacy 101.0946; Globulin 2.8 g/dL (1.3-4.6); Glucose 134 mg/dL (65-115); Lipase 33 U/L (13-60); Osmolality Calculated 296 mOsm/kg (285-295); Potassium 4.3 mmol/L (3.5-5.1); Sodium 141 mmol/L (136-145); Total Protein 7.3 g/dL (6.6-8.7)
[2025-04-16 11:58] LABS: Glucose Urine UA Negative (Normal); Nitrate Urine Negative (Negative); Specific Gravity, Urine 1.016 (1.005-1.030)
[2025-04-16 12:03] LABS: Add Urine Microscopic? YES
== END 2025-04-16 13:01 | disposition home or self-care (01) ==
PROVIDERS: Emergency Provider Emergency Medicine; PCP Family Medicine
DX: R10.9 Unspecified abdominal pain (principal)
CPT/HCPCS: 36415; 74177; 80053; 81001; 83690; 85025; 99285; J7030

== ENCOUNTER → 2025-06-06 08:17 | Outpatient (BNVA) | payer OTHER, SELFPAY | PROVIDERS: PCP Family Medicine; Visit Provider Family Medicine | DX: E11.9 Type 2 diabetes mellitus without complications (principal); N20.0 Calculus of kidney | CPT/HCPCS: 80053; 82043; 83036 ==

== ENCOUNTER → 2025-07-24 12:39 | Outpatient (BNVA) | payer OTHER, SELFPAY | PROVIDERS: PCP Family Medicine; Visit Provider Emergency Medicine | DX: J06.9 Acute upper respiratory infection, unspecified (principal) | CPT/HCPCS: 87400; 87426 ==